=== PATIENT | female | born 1960 | race Caucasian/White ===

== ENCOUNTER 2017-12-02 09:09 | Emergency (ER) | payer SELFPAY ==
[2017-12-02] MEDS ORDERED: SULF1TAB24 PO (10:09)
--- NOTE | 2017-12-02 10:09 | PHYS DOC ---
Past History Past Medical History: Arthritis, COPD, Depression, Hypertension, Other Past Surgical History: Cholecystectomy, Hysterectomy, Oophorectomy Adult General Chief Complaint Chief Complaint: FOOT INJURY PAIN HPI HPI 57-year-old female presents with a wound to her right heel. She states she scraped her foot several weeks ago and now is having some pain in the area. She states she is concerned that there is some redness around the wound. There is no drainage from the wound. She states her primary concern is that it hurts when she walks on it.[] Review of Systems Review of Systems Constitutional: Denies fever or chills [] Eyes: Denies change in visual acuity, redness, or eye pain [] HENT: Denies nasal congestion or sore throat [] Respiratory: Denies cough or shortness of breath [] Cardiovascular: No additional information not addressed in HPI [] GI: Denies abdominal pain, nausea, vomiting, bloody stools or diarrhea [] : Denies dysuria or hematuria [] Musculoskeletal: Denies back pain or joint pain [] Integument: Per history of present illness[] Neurologic: Denies headache, focal weakness or sensory changes [] Endocrine: Denies polyuria or polydipsia [] All other systems were reviewed and found to be within normal limits, except as documented in this note. Allergies Allergies Allergies Coded Allergies Type Severity Reaction Last Updated Verified No Known Drug Allergies 12/02/17 No Physical Exam Physical Exam Constitutional: Well developed, well nourished, no acute distress, non-toxic appearance. [] HENT: Normocephalic, atraumatic, bilateral external ears normal, oropharynx moist, no oral exudates, nose normal. [] Eyes: PERRLA, EOMI, conjunctiva normal, no discharge. [] Neck: Normal range of motion, no tenderness, supple, no stridor. [] Cardiovascular:Heart rate regular rhythm, no murmur [] Lungs & Thorax: Bilateral breath sounds clear to auscultation [] Abdomen: Bowel sounds normal, soft, no tenderness, no masses, no pulsatile masses. [] Skin: There is a dime-sized healing wound to the right heel I do not feel any fluctuance or no surrounding erythema I'm unable to express any purulent material. However it is tender to palpate. [] Back: No tenderness, no CVA tenderness. [] Extremities: No tenderness, no cyanosis, no clubbing, ROM intact, no edema. [] Neurologic: Alert and oriented X 3, normal motor function, normal sensory function, no focal deficits noted. [] Psychologic: Anxious. [] Current Patient Data Vital Signs Vital Signs Date Time Temp Pulse Resp B/P (MAP) Pulse Ox O2 Delivery O2 Flow Rate FiO2 12/02/17 09:09 98.0 87 18 96 EKG EKG [] Radiology/Procedures Radiology/Procedures [] Impressions: Right calcaneus soft tissue did not show any evidence of foreign body Course & Med Decision Making Course & Med Decision Making Pertinent Labs and Imaging studies reviewed. (See chart for details) [] Dragon Disclaimer Dragon Disclaimer This electronic medical record was generated, in whole or in part, using a voice recognition dictation system. Departure Departure: Impression: Primary Impression: Puncture wound of right heel without complication Disposition: HOME, SELF-CARE Condition: STABLE Referrals: PCP,NO (PCP) Patient Instructions: Wound Care, [id number] Additional Instructions: Continue the warm soaks as you have been doing. Take antibiotics as directed. Scripts Sulfamethoxazole/Trimethoprim (BACTRIM DS TABLET) 1 Each Tablet 1 TAB PO BID, #20 TAB Prov: MO CHRISTIANSON DO 12/02/17 Problem Qualifiers Primary Impression: Puncture wound of right heel without complication Encounter type: initial encounter Qualified Codes: S91.331A - Puncture wound without foreign body, right foot, initial encounter MO CHRISTIANSON DO Dec 02, 2017 10:09
[2017-12-02 10:17] VITALS: BP 177/93
--- NOTE | 2017-12-02 10:39 | RAD ---
Calcaneus radiograph 12/02/2017 9:54 AM INDICATION: Stepped on something with swelling. COMPARISON: None available. TECHNIQUE: 3 views of the calcaneus are provided. FINDINGS: There is no acute fracture or dislocation. Posterior calcaneal enthesophyte is noted. Bone mineralization is within normal limits. Joint spaces are maintained. Soft tissue swelling is noted without radiopaque foreign density. There is no soft tissue gas or osseous erosion. IMPRESSION: No acute fracture or dislocation. Soft tissue swelling without evidence for radiopaque foreign density. Electronically signed by: Kathy Orellana MD (12/02/2017 10:35 AM) [id number]
== END 2017-12-02 10:17 | disposition home or self-care (01) ==
LOC: ER 09:09
DX: S91.331A Puncture wound without foreign body, right foot, initial encounter (principal); M19.90 Unspecified osteoarthritis, unspecified site; J44.9 Chronic obstructive pulmonary disease, unspecified; I10 Essential (primary) hypertension; W22.8XXA Striking against or struck by other objects, initial encounter; Y93.89 Activity, other specified; Y92.89 Other specified places as the place of occurrence of the external cause; Y99.8 Other external cause status
CPT/HCPCS: 73650; 99284

== ENCOUNTER 2017-12-10 10:45 | Inpatient (IN) | payer SELFPAY ==
[~2017-12-10] VITALS: Ht 177.8 cm; Wt 111.2 kg
[~2017-12-10 10:45] MED LIST: SULF1TAB24 PO
--- NOTE | 2017-12-10 11:10 | PHYS DOC ---
Past History Past Medical History: Arthritis, COPD, Depression, Hypertension, Other Past Surgical History: Cholecystectomy, Hysterectomy, Oophorectomy Adult General Chief Complaint Chief Complaint: FOOT INJURY PAIN HPI HPI 57-year-old female returns emergency room with right foot pain. The patient was seen in the emergency room about a week ago for a right foot puncture wound and concern for infection. There was an attempt to drain the wound at that time with no real discharge. Patient was placed on Bactrim. She states that she has been taking it as prescribed. Over the last few days she has developed an increasing mass that looks like a hematoma or blister. It is now at least 6 cm in diameter and appears to be filled with a serosanguineous fluid. She has had minimal leakage from it. Patient denies fever or chills. She is concerned that it is still red around the mass. It is painful to walk and the patient has been mostly sitting around except for a walk to the bathroom. Review of Systems Review of Systems Constitutional: Denies fever or chills [] Eyes: Denies change in visual acuity, redness, or eye pain [] HENT: Denies nasal congestion or sore throat [] Respiratory: Denies cough or shortness of breath [] Cardiovascular: No additional information not addressed in HPI [] GI: Denies abdominal pain, nausea, vomiting, bloody stools or diarrhea [] : Denies dysuria or hematuria [] Musculoskeletal: Denies back pain or joint pain [] Integument: Right foot posterior mass[] Neurologic: Denies headache, focal weakness or sensory changes [] Endocrine: Denies polyuria or polydipsia [] All other systems were reviewed and found to be within normal limits, except as documented in this note. Allergies Allergies Allergies Coded Allergies Type Severity Reaction Last Updated Verified No Known Drug Allergies 12/02/17 No Physical Exam Physical Exam Constitutional: Well developed, well nourished, no acute distress, non-toxic appearance. [] HENT: Normocephalic, atraumatic, bilateral external ears normal, oropharynx moist, no oral exudates, nose normal. [] Eyes: PERRLA, EOMI, conjunctiva normal, no discharge. [] Neck: Normal range of motion, no tenderness, supple, no stridor. [] Cardiovascular:Heart rate regular rhythm, no murmur [] Lungs & Thorax: Bilateral breath sounds clear to auscultation [] Abdomen: Bowel sounds normal, soft, no tenderness, no masses, no pulsatile masses. [] Skin: 6 cm mass filled with serosanguineous fluid. There is surrounding erythema with warmth. Evidence of a puncture wound at one into the mass.[] Back: No tenderness, no CVA tenderness. [] Extremities: No tenderness, no cyanosis, no clubbing, ROM intact, no edema. [] Neurologic: Alert and oriented X 3, normal motor function, normal sensory function, no focal deficits noted. [] Psychologic: Affect normal, judgement normal, mood normal. [] EKG EKG [] Radiology/Procedures Radiology/Procedures [] Impressions: CT LOWER EXTREMITY WO RIGHT Indication: Ovarian failure, history of swelling, stepped on something December 02, 2017 Technique: Noncontrast CT imaging was performed of the right foot, multiplanar reconstruction images submitted. One or more of the following individualized dose reduction techniques were utilized for this examination: 1. Automated exposure control 2. Adjustment of the mA and/or kV according to patient size 3. Use of iterative reconstruction technique. Contrast: None Comparison: Right calcaneus radiographs December 02, 2017 Findings: There is some strandy change of the soft tissues. There is more localized fluid density collection along the skin posterior medially located the more medial to the posterior aspect of the calcaneus, measures about 4.1 cm AP by about 2.6 cm transverse by 4.7 cm CC. This is not contiguous with the calcaneus. There is also some skin thickening and mild fluid density more laterally of the mid to distal foot. No acute fracture or aggressive bone destruction is identified. IMPRESSION: 1. There is strandy change of the soft tissues which may be due to underlying cellulitis, also more localized nonspecific fluid collection along the skin surface more posteriorly located medial to the calcaneus, not contiguous with calcaneus. There is also some mild fluid density and skin thickening more laterally of the mid to distal foot. 2. No aggressive bone destruction or acute fracture is identified. Electronically signed by: Atul Boyd MD (12/10/2017 2:06 PM) [id number] Course & Med Decision Making Course & Med Decision Making Pertinent Labs and Imaging studies reviewed. (See chart for details) Patient's white count is normal. She does not have a fever. Based on the exam of the wound itself, I'm concerned that the patient is failing outpatient antibiotics. Her wound should be much improved after 7 days of Bactrim and it is not. She tells me the size of the mass (fluid-filled sac) has expanded and is much bigger than previously. I will start the patient on IV antibiotics vancomycin and Zosyn. I discussed the case with the hospitalist, Dr. Buenrostro and he has agreed to admit the patient for further management. [] Dragon Disclaimer Dragon Disclaimer This electronic medical record was generated, in whole or in part, using a voice recognition dictation system. Departure Departure: Referrals: PCP,NO (PCP) BLAKE WELSH DO Dec 10, 2017 11:10
[2017-12-10] MEDS ORDERED: IV NORMAL SALINE 1,000ML 1,000 ML IV ONE (11:15)
[2017-12-10 11:31] LABS: BASO % 1 % (0-3); EOS # 0.3 x10^3/uL (0.0-0.7); EOS % 4 % (0-3); HEMATOCRIT 42.4 % (36.0-47.0); HEMOGLOBIN 14.2 g/dL (12.0-15.5); LYMPH # 1.9 x10^3/uL (1.0-4.8); LYMPH % 27 % (24-48); MEAN CORPUSCULAR HEMOGLOBIN 31 pg (25-35); MEAN CORPUSCULAR HGB CONC 34 g/dL (31-37); MEAN CORPUSCULAR VOLUME 92 fL (79-100); MONO # 0.7 x10^3/uL (0.0-1.1); MONO % 9 % (0-9); NEUT # 4.2 x10^3uL (1.8-7.7); NEUT % 59 % (31-73); PLATELET COUNT 92 x10^3/uL (140-400); RED CELL DISTRIBUTION WIDTH 15.6 % (11.5-14.5); WHITE BLOOD COUNT 7.1 x10^3/uL (4.0-11.0)
[2017-12-10 11:43] LABS: ALBUMIN 2.3 g/dL (3.4-5.0); ALBUMIN/GLOBULIN RATIO 0.6 (1.0-1.7); CALCIUM 8.4 mg/dL (8.5-10.1); CREATININE 0.7 mg/dL (0.6-1.0); GFR 86.9; TOTAL BILIRUBIN 1.9 mg/dL (0.2-1.0); TOTAL PROTEIN 5.9 g/dL (6.4-8.2)
[2017-12-10 11:59] LABS: BILIRUBIN,URINE NEG (NEG); CLARITY,URINE HAZY; COLOR,URINE AMBER; GLUCOSE,URINE NEG (NEG); NITRITE,URINE NEG (NEG); UROBILINOGEN,URINE 1 mg/dL (0.2 mg/dL)
[2017-12-10 12:00] LABS: BACTERIA,URINE FEW /HPF (0-FEW); RBC,URINE OCC /HPF (0-2); SQUAMOUS EPITHELIAL CELL,UR MOD /LPF; WBC,URINE OCC /HPF (0-4)
[2017-12-10 12:01] LABS: TRICHOMONAS,URINE PRESENT
[2017-12-10 12:03] LABS: AMORPHOUS SEDIMENT,UR PRESENT /HPF
[2017-12-10] MEDS ORDERED: VANCOMYCIN 2 GM in IV NORMAL SALINE 500ML 500 ML IV ONE (12:45)
[2017-12-10] MEDS ORDERED: IV NORMAL SALINE 50ML 50 ML ONE (12:45)
[2017-12-10] MEDS ORDERED: PIPERACILLIN/TAZOBACTAM 4.5 GM VIAL IV ONE (12:45)
[2017-12-10] MEDS ORDERED: PIPERACILLIN/TAZOBACTAM 4.5 GM in IV NORMAL SALINE 50ML 50 ML IV ONE (12:45)
[2017-12-10] MEDS ORDERED: VANCOMYCIN 1 GM VIAL. ONE (13:34)
[2017-12-10] MEDS ORDERED: IV NORMAL SALINE 500ML 500 ML ONE (13:34)
[2017-12-10] MEDS ORDERED: IPRATRPIUM/ALBUTEROL 0.5/2.5MG 3 ML NEBU. NEB ONE (14:00)
--- NOTE | 2017-12-10 14:09 | RAD ---
CT LOWER EXTREMITY WO RIGHT Indication: Ovarian failure, history of swelling, stepped on something December 02, 2017 Technique: Noncontrast CT imaging was performed of the right foot, multiplanar reconstruction images submitted. One or more of the following individualized dose reduction techniques were utilized for this examination: 1. Automated exposure control 2. Adjustment of the mA and/or kV according to patient size 3. Use of iterative reconstruction technique. Contrast: None Comparison: Right calcaneus radiographs December 02, 2017 Findings: There is some strandy change of the soft tissues. There is more localized fluid density collection along the skin posterior medially located the more medial to the posterior aspect of the calcaneus, measures about 4.1 cm AP by about 2.6 cm transverse by 4.7 cm CC. This is not contiguous with the calcaneus. There is also some skin thickening and mild fluid density more laterally of the mid to distal foot. No acute fracture or aggressive bone destruction is identified. IMPRESSION: 1. There is strandy change of the soft tissues which may be due to underlying cellulitis, also more localized nonspecific fluid collection along the skin surface more posteriorly located medial to the calcaneus, not contiguous with calcaneus. There is also some mild fluid density and skin thickening more laterally of the mid to distal foot. 2. No aggressive bone destruction or acute fracture is identified. Electronically signed by: Atul Boyd MD (12/10/2017 2:06 PM) [facility]
[2017-12-10 15:09] VITALS: BP 164/101
[2017-12-10] MEDS ORDERED: SERT50TA PO (15:57)
[2017-12-10] MEDS ORDERED: CELE100C PO (15:57)
[2017-12-10] MEDS ORDERED: CYCL-331 PO (15:57)
[2017-12-10] MEDS ORDERED: ALBU8.5H8 INH (15:57)
[2017-12-10] MEDS ORDERED: METO-239 PO (15:57)
[2017-12-10] MEDS ORDERED: OMEP20CA9 PO (15:57)
[2017-12-10] MEDS ORDERED: ALBUTEROL SULFATE 8GM INHALER. INH PRN (16:00)
[2017-12-10] MEDS ORDERED: ALBUTEROL SULFATE 2.5 MG/3 ML NEBU. NEB PRN (16:15)
[2017-12-10] MEDS ORDERED: METOPROLOL SUCC 24HR ER 25 MG TAB.ER.24H. PO SCH (16:30)
--- NOTE | 2017-12-10 16:32 | HP ---
ADMIT DATE: 12/10/2017 HISTORY OF PRESENT ILLNESS: The patient is a 57-year-old female patient, who apparently came to the Emergency Room with right foot pain. The patient was seen in the Emergency Room about a week ago for a right foot puncture wound and concern for infection. There was an attempt to drain the wound at that time with no real discharge. The patient was placed on Bactrim. She stated that she has been taking it as prescribed. Over the last few days, she also developed an increasing mass that looks like hematoma or blister. It is at least 6 cm in diameter and appears to be filled with serosanguineous fluid. She has had minimal leakage from it. The patient denies any fever or chills. She is concerned that it is still red. It is painful to walk. The patient has been mostly sitting around except for a walk up to the bathroom. Apparently, she thinks that this happened when she was packing her stuffs in [place] to move to [place]. There she and her significant other are living in a tent behind the [facility]. 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 PAST SURGICAL HISTORY: Significant for cholecystectomy, total abdominal hysterectomy and bilateral salpingo-oophorectomy as well as colonoscopy. ALLERGIES: She has no known drug allergies. MEDICATIONS: She is currently on the following medications. FAMILY HISTORY: She has 1 brother and 2 sisters. Her brother and 1 sister older and 1 sister is younger. Her brother has shingles. Her father in his late 70s and mother is still alive in her 70s and has degenerative disk disease. SOCIAL HISTORY: She is engaged. She smokes 2 cigarettes per day. She does not drink alcohol. She last used methamphetamine about 4-5 months ago. She is currently unemployed. REVIEW OF SYSTEMS: The patient denied any blurring of vision, cataract, glaucoma, or macular degeneration. Denied any earache, tinnitus, or sensorineural deafness. Denied any nosebleeds, stuffy nose, or postnasal drip. Denied any sore throat, sore tongue, toothache, hoarseness of voice, or difficulty swallowing. She denied any nausea, vomiting, diarrhea, or constipation. Denied any hematemesis, melena, or hematochezia. Denied any dysuria, frequency, or hematuria. Denied any chest pain, shortness of breath, orthopnea, or paroxysmal nocturnal dyspnea. Denied any cough or hemoptysis. Denied any chills, rigors, or fever. PHYSICAL EXAMINATION: GENERAL: On arrival to the Emergency Room, she looked well and was clearly in no apparent respiratory distress, slightly pale, but no jaundice, cyanosis, or thyromegaly. No jugular venous distention. No limb edema. VITAL SIGNS: Her heart rate was 104, blood pressure was 161/94, temperature was 98.1, respiratory rate was 20, and oxygen saturation was 94%. HEAD, EYES, EARS, NOSE, AND THROAT: Showed normocephalic, atraumatic. NECK: Supple. HEART: Showed normal first and second heart sounds with no gallop, rub, or murmur. CHEST: Clear to auscultation. No crepitation or rhonchi. ABDOMEN: Distended, soft, nontender. NEUROLOGIC: She was awake, alert, responding appropriately. All cranial nerves intact. She moves extremities without difficulty. She ambulates without assistance or assistive devices. Examination of the right foot showed that she has a large blister that just opened up and drained a large amount of serosanguineous fluid. LABORATORY DATA: Her lab work showed that her white cell count was 7100, hemoglobin 14, hematocrit 42, MCV 92, and platelet count of 92,000. Her chemistry showed a serum sodium of 142, potassium 4, chloride 112, bicarbonate 22, anion gap of 8, BUN 10, creatinine 0.7, estimated GFR was 87 mL per minute. Her glucose was 155, calcium was 8.4. Total bilirubin was high at 1.9, AST and alkaline phosphatase was high. ALT is normal. Her total protein was 5.9, albumin was 2.3. Her urinalysis showed the urine was hazy with a pH of 5.5, specific gravity of 1.030. The urine was negative for glucose, ketones, blood, nitrite and bilirubin as well as leukocyte esterase, occasional rbc's, occasional wbc's, very few bacteria. His CT scan of the right foot showed that the patient has stranding change in the soft tissue, which may be due to underlying cellulitis, also more localized nonspecific fluid collection along the skin surface more posteriorly located medial to the calcaneus, not contiguous with calcaneus. There is also some mild fluid density and skin thickening, more laterally of the medial to distal foot. No aggressive bone destruction or acute fractures identified. My plan is to start her on IV antibiotic in the form of vancomycin and Zosyn. Continue with all her medications that include omeprazole 20 mg twice a day, metoprolol 25 mg once a day, Flexeril 10 mg once a day, Celebrex 100 mg once a day, sertraline 50 mg once a day, and ProAir 2 puffs every 6 hours. We will do a bone scan and consult the wound care team to take care of her wound. I will repeat her lab works tomorrow and follow her closely. PRADIP SELF MD DR: JOSR/milly JOB#: [id number] / [id number]
[2017-12-10] MEDS ORDERED: PIP/TAZO PER PHARMACY MC PRN (16:45)
[2017-12-10] MEDS: METOPROLOL SUCC 24HR ER 25 MG TAB.ER.24H. PO SCH (16:52)
[2017-12-10] MEDS: HYDROcodone/APAP 5/325MG 1 TAB TABLET PO PRN ×2 (17:09→23:13)
[2017-12-10] MEDS: VANCOMYCIN PER PHARMACY MC PRN ×2 (17:47→17:49)
[2017-12-10] MEDS: PIPERACILLIN/TAZOBACTAM 4.5 GM in IV NORMAL SALINE 50ML 50 ML IV SCH ×2 (18:10→23:46)
[2017-12-10 19:26] VITALS: BP 166/60
[2017-12-10] MEDS: CYCLOBENZAPRINE 10 MG TABLET. PO PRN (21:13)
[2017-12-10 22:53] VITALS: BP 145/81
[2017-12-11] MEDS ORDERED: VANCOMYCIN 2 GM in IV NORMAL SALINE 500ML 500 ML IV ONE ×2
[2017-12-11 05:36] VITALS: BP 122/95
[2017-12-11] MEDS: PIPERACILLIN/TAZOBACTAM 4.5 GM in IV NORMAL SALINE 50ML 50 ML IV SCH ×3 (05:57→18:05)
[2017-12-11 06:17] LABS: BASO # 0.1 x10^3/uL (0.0-0.2); BASO % 1 % (0-3); EOS # 0.4 x10^3/uL (0.0-0.7); EOS % 6 % (0-3); HEMATOCRIT 39.6 % (36.0-47.0); HEMOGLOBIN 13.4 g/dL (12.0-15.5); LYMPH # 1.9 x10^3/uL (1.0-4.8); LYMPH % 29 % (24-48); MEAN CORPUSCULAR HEMOGLOBIN 31 pg (25-35); MEAN CORPUSCULAR HGB CONC 34 g/dL (31-37); MEAN CORPUSCULAR VOLUME 91 fL (79-100); MONO # 0.5 x10^3/uL (0.0-1.1); MONO % 8 % (0-9); NEUT # 3.7 x10^3uL (1.8-7.7); NEUT % 57 % (31-73); PLATELET COUNT 92 x10^3/uL (140-400); RED BLOOD COUNT 4.34 x10^6/uL (3.50-5.40); RED CELL DISTRIBUTION WIDTH 15.6 % (11.5-14.5); WHITE BLOOD COUNT 6.6 x10^3/uL (4.0-11.0)
[2017-12-11 06:27] LABS: C REACTIVE PROTEIN 16.3 mg/L (0-3.3); CREATININE 0.6 mg/dL (0.6-1.0); GFR 103.8
[2017-12-11] MEDS: HYDROcodone/APAP 5/325MG 1 TAB TABLET PO PRN ×2 (07:00→16:04)
[2017-12-11] MEDS ORDERED: PANTOPRAZOLE 40 MG TABLET. PO SCH (07:30)
[2017-12-11] MEDS: METOPROLOL SUCC 24HR ER 25 MG TAB.ER.24H. PO SCH (08:41)
[2017-12-11] MEDS ORDERED: SERTRALINE 50 MG TABLET. PO SCH (09:00)
[2017-12-11] MEDS ORDERED: CELECOXIB 100 MG CAPSULE PO SCH (09:00)
[2017-12-11 10:57] VITALS: BP 123/65
[2017-12-11] MEDS ORDERED: ONDANSETRON ODT 4 MG TAB.RAPDIS PO PRN (12:00)
[2017-12-11] MEDS ORDERED: VANCOMYCIN 2 GM in IV NORMAL SALINE 500ML 500 ML IV SCH (12:00)
--- NOTE | 2017-12-11 13:49 | RAD ---
Three-phase bone scan, 12/11/2017: HISTORY: Infected right heel Imaging of the feet was performed following IV injection of 27.7 mCi of technetium 99m MDP. The dynamic flow study and the blood pool image demonstrates mild hyperemia along the margins of the posterior aspect of the right calcaneus. Delayed images demonstrate only minimally increased calcaneal activity, similar to that seen on the left, no greater than that seen on the dynamic images. The findings suggest cellulitis rather than osteomyelitis. There are additional scattered areas of mildly increased activity at the midfoot levels and at the great toes compatible with arthritis. IMPRESSION:Mild hyperemia along the margins of the calcaneus without specific evidence of osteomyelitis. Electronically signed by: Jeff Santillan MD (12/11/2017 1:46 PM) [facility] [place]
[2017-12-11 14:43] VITALS: BP 167/84
--- NOTE | 2017-12-11 19:37 | PN ---
DATE: 12/11/2017 SUBJECTIVE: The patient is resting, slightly propped up in bed, in no apparent distress. She did have the bone scan, although the report is not available yet. She has a large blister on the posterior aspect of the right heel has opened up and a large amount of serosanguineous fluid was drained. She does have marked erythema surrounding the blister. She has mild discomfort, but denied any chills, rigors or fever. PHYSICAL EXAMINATION: GENERAL: When I examined her, she was resting slightly propped up in bed, in no apparent respiratory distress, slightly pale, but no jaundice, cyanosis, or thyromegaly. No jugular venous distention. No limb edema. VITAL SIGNS: Her heart rate was 69, blood pressure was 123/65, temperature was 98.4, respiratory rate 20, and oxygen saturation was 92%. HEAD, EYES, EARS, NOSE AND THROAT: Normocephalic, atraumatic. NECK: Supple. HEART: Showed normal first and second heart sounds with no gallop, rub or murmur. CHEST: Clear to auscultation. No crepitation or rhonchi. ABDOMEN: Distended, soft, and nontender. No guarding or rigidity. No organomegaly. Hernial orifice intact. Bowel sounds normal. NEUROLOGIC: She was awake, alert, responding appropriately. Cranial nerves intact. She moves extremities without difficulty. LABORATORY DATA: Her lab work this morning showed a white cell count of 6600, hemoglobin 13.4, hematocrit 39, MCV 91, and platelet count of 92,000. Her chemistry showed a serum sodium 139, potassium 4, chloride 109, bicarbonate 25, anion gap of 5, BUN 5, creatinine 0.6, estimated GFR was 103 mL per minute. Her glucose 117, calcium was 8. Ammonia was 74. C-reactive protein was 16.3. Total protein was 5.9, albumin 2.3. Her prothrombin time was 11.7, INR 1.2. Urinalysis was done and unremarkable. ASSESSMENT: Cellulitis on left heel with large blisters that was opened and drained large amount of serosanguineous fluid. Other medical problems include chronic obstructive pulmonary disease, liver cirrhosis, hepatitis C, degenerative disk disease, rheumatoid arthritis/osteoarthritis, and hypertension. PLAN: To continue with intravenous antibiotics. Await the bone scan and wound care team evaluation and we will decide hopefully tomorrow to discharge her to continue treatment as an outpatient. PRADIP SELF MD DR: JOSR/milly JOB#: [id number] / [id number]
[2017-12-11] MEDS: CYCLOBENZAPRINE 10 MG TABLET. PO PRN (19:56)
[2017-12-11 20:10] VITALS: BP 151/85
[2017-12-11] MEDS ORDERED: LACTOBACILLUS RHAMNOSUS GG 1 CAPSULE. PO SCH (21:00)
[2017-12-12] MEDS ORDERED: CELECOXIB 100 MG CAPSULE PO SCH (21:00)
--- NOTE | 2017-12-15 11:11 | DS ---
DATE OF DISCHARGE: 12/11/2017 HISTORY AND HOSPITAL COURSE: The patient is a 57-year-old female patient who was seen in the Emergency Room of [facility] for a complaint of pain in her right foot. She was seen in the Emergency Room about a week prior for a right foot puncture wound and concern was for infection and cellulitis. There was an attempt to drain the wound at that time with no real discharge, the patient was placed on Bactrim and had been taking it as prescribed, but the pain continued as well as the redness and she developed a large blister, which was about 6 cm in diameter and appeared to be filled with serosanguineous fluid. She denied any fever or chills. Therefore, the patient was admitted to [facility] and was started on IV antibiotic after obtaining cultures. She was started on vancomycin and Zosyn. She was evaluated by the wound care team and they recommended that the patient need further debridement and therefore, the patient was transferred to [facility] to consult the orthopedic surgeon for surgical debridement under general anesthesia. PHYSICAL EXAMINATION: GENERAL APPEARANCE: On the day of discharge, she looked well and was clearly in no apparent respiratory distress. She was pale, but no jaundice, cyanosis, lymphadenopathy or thyromegaly. No jugular venous distension. No limb edema. VITAL SIGNS: Her heart rate was 74, blood pressure was 151/85, temperature was 98, respiratory rate 20, and oxygen saturation was 91% on room air. HEAD, EYES, EARS, NOSE AND THROAT: Showed normocephalic, atraumatic. NECK: Supple. HEART: Showed normal first and second sounds. No gallop, rub or murmur. CHEST: Clear to auscultation. No crepitation or rhonchi. ABDOMEN: Distended, soft, nontender. No guarding or rigidity. No organomegaly. Hernial orifice intact. Bowel sounds normal. NEUROLOGIC: She is awake, alert, responding appropriately. All cranial nerves intact. She moves extremities without difficulty. LABORATORY DATA: Showed a white cell count of 6600, hemoglobin 13, hematocrit 39, MCV 91, and platelet count of 92,000. Her chemistry showed a serum sodium of 139, potassium 4, chloride 109, bicarbonate 25, anion gap of 5, BUN 5, creatinine 0.6, estimated GFR was 103 mL per minute. Her glucose was 117, calcium was 8 and C-reactive protein was 6.3. Her sedimentation rate was only 8 mm per hour. Her prothrombin time was 11.7, INR of 1.2. DISCHARGE MEDICATIONS: She was transferred to [facility] to continue on albuterol sulfate 1 puff every 6 hours, Celebrex 100 mg once a day, cyclobenzaprine 10 mg daily as needed, metoprolol succinate 25 mg once a day, omeprazole 20 mg twice a day and sertraline for Zoloft 50 mg daily and to continue also on Zosyn and vancomycin. FINAL DISCHARGE DIAGNOSES: Infected right foot with cellulitis, possible abscess. No evidence of osteomyelitis. She had a CT scan as well as bone scan, which showed no evidence of bony destructive lesion. 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 PRADIP SELF MD DR: JOSR/milly JOB#: [id number] / [id number] MARY
== END 2017-12-11 20:40 | disposition short-term general hospital (02) | DRG 607 ==
LOC: ER 10:45 → 1 SOUTH 13:08
PROVIDERS: ADMIT Internal Medicine; ATTEND Internal Medicine
DX: S90.821A Blister (nonthermal), right foot, initial encounter (principal); L03.115 Cellulitis of right lower limb; B19.20 Unspecified viral hepatitis C without hepatic coma; F17.210 Nicotine dependence, cigarettes, uncomplicated; I10 Essential (primary) hypertension; J44.9 Chronic obstructive pulmonary disease, unspecified; X58.XXXA Exposure to other specified factors, initial encounter; K74.60 Unspecified cirrhosis of liver; M06.9 Rheumatoid arthritis, unspecified; F32.9 Major depressive disorder, single episode, unspecified; Z90.49 Acquired absence of other specified parts of digestive tract; Z90.722 Acquired absence of ovaries, bilateral; Z90.710 Acquired absence of both cervix and uterus; Z79.899 Other long term (current) drug therapy; Y93.89 Activity, other specified; Y92.89 Other specified places as the place of occurrence of the external cause; Y99.8 Other external cause status
CPT/HCPCS: 36415; 73700; 78315; 80048; 80053; 81001; 82140; 85025; 85610; 85651; 86140; 87040; 87070; 87186; 94640; 96361; 96365; 96366; 96368; A9503; J2543; J3370; J7040; J7620; Q0162; 99285-25; J7030